=== PATIENT | female | born 1950 | race Caucasian/White ===

== ENCOUNTER 2016-11-22 00:01 | Outpatient (CLI) | payer MEDICARE, BC ==
[2014-06-04 09:58] VITALS: BMI 25.4
[~2016-11-22 00:01] MED LIST: ASPIRIN EC81 M1 PO; ASTELIN137 MCG NS; COLACE100 MG PO; DIFLUCAN100 MG PO; GARLIC1 CAP PO; IPRAT-ALBUT 0.5-3 ML UPD; NASONEX NASAL S17 GM NS; PRILOSEC20 MG PO; SINGULAIR10 MG PO; SYMBICORT 16010.2 GM INH; VENTOLIN HFA18 GM INH; ZYRTEC10 MG PO
== END 2016-11-22 23:59 | disposition home or self-care (01) ==
LOC: D.US 00:01
DX: N63 Unspecified lump in breast (principal)

== ENCOUNTER → 2018-06-27 09:08 | Outpatient (CLI) | payer MEDICARE, BC ==
[2014-06-04 09:58] VITALS: BMI 25.4
== END | disposition home or self-care (01) ==
LOC: D.CT 09:08
DX: R11.0 Nausea (principal); R10.13 Epigastric pain; R10.12 Left upper quadrant pain

== ENCOUNTER → 2018-08-26 08:57 | Outpatient (CLI) | payer MEDICARE, BC ==
[2014-06-04 09:58] VITALS: BMI 25.4
== END | disposition home or self-care (01) ==
LOC: D.RT 08:57
DX: J45.909 Unspecified asthma, uncomplicated (principal); J47.9 Bronchiectasis, uncomplicated

== ENCOUNTER → 2018-09-18 19:11 | Outpatient (CLI) | payer MEDICARE, BC ==
[2014-06-04 09:58] VITALS: BMI 25.4
== END | disposition home or self-care (01) ==
LOC: D.MAMMO 11:00
DX: Z12.31 Encounter for screening mammogram for malignant neoplasm of breast (principal)

== ENCOUNTER 2019-02-27 19:47 | Observation (INO) | payer MEDICARE, BC ==
[~2019-02-27] VITALS: Ht 172.7 cm; Wt 95.5 kg
--- NOTE | ~2019-02-27 | OP ---
PATIENT NAME: NOVA GRAHAM MEDICAL RECORD: [id number] :50 LOCATION:D.M2 D.0 ADMISSION DATE:02/27/19 SURGEON: BEKAH LOUIE MD DATE OF OPERATION: 02/28/2019 PROCEDURES: 1. Left heart catheterization. 2. Selective coronary angiography. 3. Left ventriculogram. 4. IFR. 5. Intravascular ultrasound. INDICATION: Angina and coronary artery disease. PROCEDURE IN DETAIL: After informed consent was obtained and after detailed explanation of risks, benefits as well as alternative therapies, the patient elected to proceed with angiogram and heart catheterization. The right femoral area was prepped and draped in normal sterile fashion. Right femoral artery was cannulated via modified Seldinger technique with placement of 6-Martiniquais sheath. All catheters exchanged through this sheath. FINDINGS: The left ventriculogram was performed in standard 30-degree LAMAR view, reveals good cardiac wall motion throughout all segments. Overall ejection fraction estimated 60%. SELECTIVE CORONARY ANGIOGRAPHY: 1. Left main showed no significant angiographic disease. 2. Left anterior descending has 79% stenosis confirmed by intravascular ultrasound; however, IFR was normal. 3. Left circumflex has mild irregularities, but no flow-limiting stenosis. 4. Right coronary has mild irregularities, but no flow-limiting stenosis. OVERALL IMPRESSION: Stenosis in the proximal LAD at 79%; however, normal IFR, optimized medical management. If she continues to have symptomatology despite optimal medical management proceed with coronary intervention. TRANSINT:[id number] Voice Confirmation ID: [id number] DOCUMENT ID: [id number] BEKAH LOUIE MD CC: [id number] DICTATION DATE: 02/28/19 1224 MANAGER ANIMATION: 02/28/19 1506 ADM IN [facility] [address] [place] [address]
--- NOTE | ~2019-02-27 | HEMODYNAMI ---
PATIENT:NVOA GRAHAM MEDICAL RECORD: [id number] : 50 LOCATION:[facility] D.2120 ADMISSION DATE: 02/27/19 Generatedon:02/28/201912:27 Patient name: NOVA GRAHAM Patient #: [id number] SSN: : 1950 Date of study: 02/28/2019 Page: Of Hemodynamic Procedure Report Patient Data Patient Demographics Procedure consent was obtained First Name: NOVA Gender: Female Last Name: GLADYS : 1950 Middle Initial: L Age: 68 year(s) Patient #: [id number] Race: Unknown Additional ID: [id number] Contact details [address]: [address] [place] [address] State: [place] City: [place] Zip code: [address] Admission Admission Data Admission Date: 02/27/2019 Admission Time: 22:24 Room #: D.2120 Height (in.): 68 BSA: 2.08 (m2) Height (cm.): 172.72 BMI: 31.84 (kg/m2) Weight (lbs.): 209.44 Weight (kg.): 95 Lab Results Lab Result Date: 02/28/2019 Lab Result Time: 0:00 Biochemistry Name Units Result Min Max BUN mg/dl 14 --(--*-)-- 7 18 Creatinine mg/dl 0.9 --(-*--)-- 0.6 1.3 CBC Name Units Result Min Max Hemoglobin g/dl 13 -*(----)-- 13.5 17.5 Procedure Procedure Types Cath Procedure Diagnostic Procedure LHC LHC w/Coronaries FFR/IVUS FFR Initial Intra-Coronary IVUS Initial Procedure Description Procedure Date Procedure Date: 02/28/2019 Procedure Start Time: 12:04 Procedure End Time: 12:27 Procedure Staff Name Function Bruce Monahan MD Performing Physician Edward Hollins RT Monitor Jayson Friedman RN Nurse Aston Terrell RT Scrub Procedure Data Cath Procedure Fluoroscopy Diagnostic fluoroscopy Total fluoroscopy Time: 3.5 time: 3.5 min min Diagnostic fluoroscopy Total fluoroscopy dose: 340 dose: 340 mGy mGy Contrast Material Contrast Material Type Amount (ml) Isovue 370 65 Entry Location Entry Primary Successful Side Size Upsize Upsize Entry Closure Succes sful Closure Location (Fr) 1 (Fr) 2 (Fr) Remarks Device Remarks Femoral Right 5 Fr 6 Fr Exoseal artery Short Estimated blood loss: 10 ml Diagnostic catheters Device Type Used For End Catheter Placement MULTIPACK Pigtail 5 Fr Procedure catheter MULTIPACK JL 4.0 5Fr Procedure catheter MULTIPACK 3DRC 5Fr Procedure catheter Procedure Complications No complications Procedure Medications Medication Administration Route Dosage Oxygen etCO2 Nasal cannula 2 l/min Lidocaine 2% added to field 20 Heparin Flush Bag added to field 2 bags (1000units/500ml NS) 0.9% NaCl I.V. 100 ml/hr Versed I.V. 1 mg Fentanyl I.V. 50 mcg Versed I.V. 1 mg Fentanyl I.V. 50 mcg Versed I.V. 1 mg Versed I.V. 1 mg Hemodynamics Rest BSA: 2.08 (m2) HGB: 13 (g/dl) O2 Consumption: Estimated: 185.62 (ml/min) O2 Cons umption indexed: Estimated:89.24 (ml/min/m) Heart Rate: 61 (bpm) Pressure Samples Time Site Value (mmHg) Purpose Heart Use Rate(bpm) 12:05 LV 121/43,70 Snapshot 65 12:10 AO 132/65(89) Snapshot 60 Snapshots Pre Cath Intra NCS Post Cath Vital Signs Time Heart Resp SPO2 etCO2 NIBP (mmHg) Rhythm Pain Sedation Rate (ipm) (%) (mmHg) Status Level (bpm) 11:31:45 61 13 100 15 165/79(125) NSR 0 (11) 10(A) , No pain 11:36:05 65 18 100 30.8 174/81(139) NSR 0 (11) 10(A) , No pain 11:40:29 60 18 100 30.8 166/78(110) NSR 0 (11) 10(A) , No pain 11:44:47 63 16 96 31.6 154/70(102) NSR 0 (11) 10(A) , No pain 11:49:07 63 12 94 30 131/64(99) NSR 0 (11) 10(A) , No pain 11:53:17 60 13 94 18 141/71(99) NSR 0 (11) 10(A) , No pain 11:57:31 62 13 96 14.3 125/68(91) NSR 0 (11) 10(A) , No pain 12:01:43 63 14 95 21.3 131/59(81) NSR 0 (11) 9(A) , No pain 12:05:55 62 14 93 0 127/64(91) NSR 0 (11) 9(A) , No pain 12:11:10 61 12 95 34.6 138/59(108) NSR 0 (11) 9(A) , No pain 12:15:28 62 13 93 33.8 113/56(82) NSR 0 (11) 9(A) , No pain 12:19:34 58 13 96 36.8 130/60(107) NSR 0 (11) 10(A) , No pain 12:23:48 59 11 96 39.8 137/60(104) NSR 0 (11) 10(A) , No pain Medications Time Medication Route Dose Verified Delivered Reason Notes Eff ectiveness by by 11:36:38 Oxygen etCO2 2 Bruce Buffie used for Nasal l/min Taniya Friedman RN procedure cannula 11:36:48 Lidocaine 2% added 20ml Bruce Bruce for local to vial Taniya Monahan MD anesthetic field 11:36:57 Heparin Flush added 2 Bruce Bruce used for Bag to bags Taniya Monahan MD procedure (1000units/500ml field NS) 11:37:06 0.9% NaCl I.V. 100 Bruce Buffie Per ml/hr Taniya Friedman RN physician 12:02:35 Versed I.V. 1 mg Bruce Buffie for Taniya Friedman RN sedation 12:02:40 Fentanyl I.V. 50 Bruce Buffie for mcg Taniya Friedman RN sedation 12:06:39 Versed I.V. 1 mg Bruce Buffie for Taniya Friedman RN sedation 12:06:42 Fentanyl I.V. 50 Bruce Buffie for mcg Taniya Friedman RN sedation 12:10:24 Versed I.V. 1 mg Bruce Buffie for Taniya Friedman RN sedation 12:14:25 Versed I.V. 1 mg Bruce Buffie for Tauth MD Friedman RN sedation Procedure Log Time Note 11:00:31 Aston Terrell RT(R) (CV) sent for patient. Start room use. 11:23:39 Time tracking: Regular hours (M-F 7:00 - 5:00) 11:23:43 Plan of Care:Hemodynamics will remain stable., Cardiac rhythm will remain stable., Comfort level will be maintained., Respiratory function will remain adequate., Patient/ family verbilizes understanding of procedure., Procedure tolerated without complication., Recovers from procedure without complications.. 11:23:49 Patient received from PCU to CCL 2 Alert and oriented. Tansferred to table in Supine position. 11:23:50 Warm blankets applied, and tammy hugger turned on for patient comfort. 11:23:51 Correct patient and procedure confirmed by team. 11:23:52 Signed procedure consent form obtained from patient. 11:23:52 ECG and BP/O2 sat monitors applied to patient. 11:30:33 Baseline sample Acquired. 11:30:33 Vital chart was started 11:30:37 Rhythm: sinus rhythm 11:30:38 Full Disclosure recording started 11:32:08 H&P Date Dictated: 02/28/2019 Within 30 days and on chart.. 11:32:09 Pre-procedure instructions explained to patient. 11:32:10 Pre-op teaching completed and patient verbalized understanding. 11:32:14 Family in patients room. 11:32:15 Patient NPO since Midnight. 11:32:17 Is the patient allergic to Iodine/contrast media? No. 11:32:19 Is patient on blood thinner?Yes 11:32:21 ACC The patient was administered the following blood thiners within the last 24 hours: ACCPlavix 11:32:25 Patient diabetic? No. 11:32:27 Previous problem with sedation/anesthesia? No ? 11:32:28 Snore? Yes 11:32:29 Sleep apnea? No 11:32:30 Deviated septum? No 11:32:31 Opens mouth fully? Yes 11:32:32 Sticks out tongue? Yes 11:32:34 Airway obstruction? Yes Asthma 11:32:42 Dentures? No ? 11:32:57 Pre procedure: right dorsailis pedis pulse 1+ Palpable, but thready & weak; easily obliterated 11:33:19 Pt opted for femoral access. 11:33:23 Patient pain scale 0/10 ?. 11:33:28 IV patent on arrival in left forearm with 0.9% NaCl at [facility]. 11:33:30 Lab results completed and on chart. 11:33:32 Right groin area was prepped with chlora-prep and draped in sterile fashion 11:33:34 Alarms reviewed by R. N. 11:33:34 Sharps counted by scrub and verified by R.N. 11:33:38 Use device set Femoral Dx 11:33:43 Tegaderm 4 x 4 (1626W) opened to sterile field. 11:33:44 ACIST Manifold (72036) opened to sterile field. 11:33:45 ACIST Hand Control (04913) opened to sterile field. 11:33:46 ACIST Syringe (09041) opened to sterile field. 11:33:46 Bag Decanter (2002S) opened to sterile field. 11:33:47 Medline Cath Pack ([id number]) opened to sterile field. 11:33:49 DIAGNOSTIC WIRE .035 260cm J wire (286918) opened to sterile field. 11:33:50 DIAGNOSTIC Multipack 5Fr catheter set (HY9710) opened to sterile field. 11:33:51 SHEATH 5FR Raleigh (IYM941) opened to sterile field. 11:34:58 Patient Weight : 209.44 lbs 11:35:03 Patient Height : 68 inches 11:35:28 Lab Result : Hemoglobin 13 g/dl 11:35:28 Lab Result : Creatinine 0.9 mg/dl 11:35:28 Lab Result : BUN 14 mg/dl 11:36:38 Oxygen 2 l/min etCO2 Nasal cannula was administered by Jayson Friedman RN; used for procedure; 11:36:48 Lidocaine 2% 20ml vial added to field was administered by Bruce Monahan MD; for local anesthetic; 11:36:57 Heparin Flush Bag (1000units/500ml NS) 2 bags added to field was administered by Bruce Monahan MD; used for procedure; 11:37:06 0.9% NaCl 100 ml/hr I.V. was administered by Jayson Friedman RN; Per physician; 11:43:01 Zero performed for pressure channel P1 12:00:14 --------ALL STOP TIME OUT------ 12:00:14 Final Timeout: patient, procedure, and site verified with staff and physician. All members of the team are in agreement. 12:00:17 Right groin site verified by team. 12:00:52 Maximum allowable Isovue 370 dose 300ml. Physician notified. (300ml for normal creatinines. For patients with creatinine of 1.7 or higher multiply weight(kg) x 5 divided by creatinine.) 12:00:57 Fire Safety Assessment: A--An alcohol-based skin anteseptic being used preoperatively., C--Open oxygen or nitrous oxide is being used., D--An ESU, laser, or fiber-optic light is being used. 12:01:07 Physical assessment completed. ASA score P 2 - A patient with mild systemic disease as per Bruce Monahan MD. 12:01:10 Sedation plan: IV Moderate Sedation Medication:Versed, Fentanyl 12:02:35 Versed 1 mg I.V. was administered by Jayson Friedman RN; for sedation; 12:02:40 Fentanyl 50 mcg I.V. was administered by Jayson Friedman RN; for sedation; 12:03:54 Procedure started. 12:04:07 Local anesthetic to right femoral artery with Lidocaine 2% by Bruce Monahan MD.INITIAL ACCESS ONLY 12:04:56 A 5 Fr sheath was inserted into the Right Femoral artery 12:05:31 A MULTIPACK Pigtail 5 Fr catheter was advanced over the wire and used for Procedure. 12:05:51 LV angiography performed. 12:05:53 LV gram done using LAMAR 12:06:06 EF : 65 % 12:06:11 LV hemodynamics recorded. 12:06:15 Injector settings: Ml/sec: 10, Volume: 20, 12:06:18 Catheter removed. 12:06:23 A MULTIPACK JL 4.0 5Fr catheter was advanced over the wire and used for Procedure. 12:06:38 LCA angiography performed. 12:06:39 Versed 1 mg I.V. was administered by Jayson Friedman RN; for sedation; 12:06:42 Fentanyl 50 mcg I.V. was administered by Jayson Friedman RN; for sedation; 12:07:29 Catheter removed. 12:07:44 A MULTIPACK 3DRC 5Fr catheter was advanced over the wire and used for Procedure. 12:07:48 RCA angiography performed. 12:07:50 Catheter removed. 12:07:53 Use device set TAUTH PCI 12:08:00 GUIDE 6FR XBLAD 3.5 catheter ([id number]) opened to sterile field. 12:08:03 SHEATH 6FR [place] (QLT681) opened to sterile field. 12:08:06 INFLATOR Merit BasixCompak (SO9908) opened to sterile field. 12:08:07 [place]mer Verrata Plus pressure wire (14006Z) opened to sterile field. 12:09:07 Sheath upsized to a 6 Fr Short. 12:09:17 6 Fr XBLAD 3.5 guide catheter was inserted over the wire 12:10:19 FFR/IFR wire advanced. 12:10:24 Versed 1 mg I.V. was administered by Jayson Friedman RN; for sedation; 12:11:01 Wire advanced across lesion. 12:12:41 LAD lesion measured at 0.95 with IFR 12:13:08 Second measurement of LAD lesion measured at 0.95 with IFR 12:13:30 [place]mer Match-E-[employer] Eagleye IVUS Catheter (91419J) opened to sterile field. 12:14:22 IVUS catheter advanced over wire. 12:14:25 Versed 1 mg I.V. was administered by Jayson Friedman RN; for sedation; 12:15:05 IVUS pass to LAD lesion performed. 12:15:51 IVUS catheter removed over wire. 12:18:58 IVUS measured at 79% in the Proximal LAD. 12:19:53 EXOSEAL 6Fr (EX600) opened to sterile field. 12:20:07 Wire removed. 12:20:07 Guide catheter removed. 12:20:15 Sheath removed intact; hemostasis achieved with Exoseal to the Right Femoral artery. 12:20:17 Procedure ended.(Physican Out) 12:23:33 Fluoroscopy time 03.50 minutes. 12:23:37 Flurop Dose total: 340 12:23:37 Fluoroscopy dose: 340 mGy 12:23:41 Contrast amount:Isovue 370 65ml. 12:23:52 Sharps counted by scrub and verified by R.N. 12:23:59 Insertion/operative site no bleeding no hematoma. 12:24:02 Post-op/insertion site Right Femoral artery dressed using a 4 x 4 and Tegaderm. 12:24:03 Post Procedure Pulses reassessed and unchanged 12:24:06 Post-procedure physical assessment completed. ASA score P 2 - A patient with mild systemic disease as per Bruce Monahan MD. 12:24:08 Post procedure rhythm: unchanged. 12:24:11 Estimated blood loss: 10 ml 12:24:12 Post procedure instruction explained to patient.Patient verbalizes understanding. 12:24:13 Patient needs reinforcement of post procedure teaching. 12:24:22 Procedure type changed to Cath procedure, Diagnostic procedure, LHC, LHC w/Coronaries, FFR/IVUS, FFR Initial, Intra-Coronary IVUS Initial 12:24:43 Procedure and supply charges have been captured, reviewed, submitted and are correct. 12:24:46 Procedure Complication : No complications 12:27:03 Vital chart was stopped 12:27:03 See physician's report for complete and final results. 12:27:06 Report given to PCU. 12:27:09 Patient transfered to PCU with Bed. 12:27:11 Procedure ended. 12:27:11 Full Disclosure recording stopped 12:27:17 End room use (Document Last) Device Usage Item Name Manufacture Quantity Catalog Hospital Part Current Minima l Lot# / Number Charge Number Stock Stock Serial# Code Tegaderm 4 3M 1 1626W [id number] [id number] 5 x 4 (1626W) ACIST Acist 1 66710 609557 078611 751380 5 Manifold Medical (70861) Systems Inc ACIST Hand Acist 1 39012 487662 661455 372408 5 Control Medical (72432) Systems Inc ACIST Acist 1 30778 942468 980590 394047 20 Syringe Medical (94934) Systems Inc Bag Microtek 1 2001S 696920 94339 316416 5 Decanter Medical Inc. () Medline Medline 1 [id number] 781501 66824 132674 5 Cath Pack ([id number]) DIAGNOSTIC St Bishnu 1 299550 822637 731393 599438 30 WIRE .035 260cm J wire (406804) DIAGNOSTIC Cardinal 1 FY2877 145162 23071 168066 30 Attend.com Health 5Fr catheter set (HR4130) SHEATH 5FR Terumo 1 UFW871 849216 559038 932503 5 [place] (OTD497) MULTIPACK Cardinal 1 046712 5 Pigtail 5 Health Fr catheter MULTIPACK Cardinal 1 714284 5 JL 4.0 5Fr Health catheter MULTIPACK Cardinal 1 182660 5 3DRC 5Fr Health catheter GUIDE 6FR Cardinal 1 82275062 105968 110314 809301 10 XBLAD 3.5 Health catheter (34023060) SHEATH 6FR Terumo 1 QZK308 271894 072120 034478 40 [place] (PAL102) INFLATOR Merit 1 BS7988 589541 550752 424374 15 [facility] Medical BasixCompak (RB9915) Bessemer Bessemer 1 34152H 818869 440860821 899875 5 Verrata Plus pressure wire (56735G) Bessemer Bessemer 1 96061I 876963 523189 820821 8 Match[employer] Eagleye IVUS Catheter (88631A) EXOSEAL 6Fr Cardinal 1 EX600 855185 885497 812051 10 (EX600) Health Signature Audit [place] Stage Time Signature Unsigned Intra-Procedure 02/28/2019 Edward Hollins 12:27:37 PM RT(R) Signatures Monitor : Edward Hollins RT Signature : Date : Time : [id number] [place] [address]
[2019-02-27 20:43] LABS: BASOPHILS 0.8 % (0-2); HEMATOCRIT 40.9 % (36.0-48.0); HEMOGLOBIN 14.3 g/dL (12-16); IMMATURE GRANULOCYTES 0.2 % (0-5); MCH 31.8 pg (26.0-34.0); MCV 91.1 fL (80.0-100.0); MEAN PLATELET VOLUME 8.8 fL (7.4-10.4); MONOCYTES 7.8 % (2-11); NEUTROPHILS 44.2 % (40-80); PLATELET COUNT 455 10x3/uL (130-400); RBC 4.49 10x6/uL (4.00-5.40); RDW 15.6 % (11.5-14.5); WBC 9.7 10x3/uL (4.8-10.8)
[2019-02-27 21:05] LABS: ALBUMIN 4.1 g/dL (3.4-5.0); ALKALINE PHOSPHATASE 92 U/L (46-116); ALT (SGPT) 24 U/L (10-68); BILIRUBIN - TOTAL 0.76 mg/dL (0.2-1.3); CALC OSMOLALITY 277 mosm/kg (275-300); CALCIUM 9.2 mg/dL (8.5-10.1); CARBON DIOXIDE 29.4 mmol/L (21.0-32.0); CHLORIDE - SERUM 102 mmol/L (98-107); CREATININE - SERUM 0.9 mg/dL (0.6-1.3); GLUCOSE 91 mg/dL (74-106); POTASSIUM - SERUM 4.1 mmol/L (3.5-5.1); PROTEIN - SERUM 8.3 g/dL (6.4-8.2); SODIUM 139 mmol/L (136-145); UREA NITROGEN 13 mg/dL (7-18); eGFR NON AFRICAN AMERICAN 66 mL/min (90-120)
[2019-02-27 21:08] LABS: CKMB 1.5 U/L (0.0-3.6); CREATINE KINASE 115 UL (21-215); TROPONIN-I < 0.017 ng/mL (0.000-0.060)
--- NOTE | 2019-02-27 22:04 | NUR ---
PT AMBULATED TO RESTROOM INDEPENDENTLY.
[2019-02-27 22:12] LABS: APPEARANCE CLEAR (CLEAR); BILIRUBIN NEGATIVE (NEGATIVE); COLOR STRAW (YELLOW); GLUCOSE NEGATIVE (NEGATIVE); KETONE NEGATIVE (NEGATIVE); NITRITE NEGATIVE (NEGATIVE); PROTEIN NEGATIVE (NEGATIVE); SPECIFIC GRAVITY 1.005 (1.005-1.020); UROBILINOGEN NORMAL (NORMAL)
--- NOTE | 2019-02-27 23:05 | NUR ---
PT'S FAMILY REQUEST THEIR CONTACT NUMBERS BE LISTED IN PT'S CHART. PT'S , ERI [phone] PT'S DAUGHTER, CARLIN [phone]
[2019-02-27] MEDS ORDERED: VITAMIN D5000 UNIT PO (23:58)
[2019-02-27] MEDS ORDERED: CARAFATE1 G PO (23:59)
[2019-02-27] MEDS ORDERED: PEPCID40 MG PO (23:59)
[2019-02-28] MEDS ORDERED: HCTZ25 MG PO
[2019-02-28] MEDS ORDERED: MIRAPEX0.5 MG PO (00:01)
[2019-02-28] MEDS ORDERED: NITROSTAT0.4 MG SL (00:01)
[2019-02-28 01:36] VITALS: BP 133/64; BMI 32.0
--- NOTE | 2019-02-28 07:46 | NUR ---
ASSESSMENT DONE. DENIES NEEDS.
[2019-02-28 08:01] LABS: BASOPHILS 0.9 % (0-2); EOSINOPHILS 3.7 % (0-7); IMMATURE GRANULOCYTES 0.1 % (0-5); LYMPHOCYTES 38.7 % (15-50); MCH 31.3 pg (26.0-34.0); MCHC 34.2 g/dL (31.0-37.0); MCV 91.3 fL (80.0-100.0); MEAN PLATELET VOLUME 9.2 fL (7.4-10.4); MONOCYTES 9.3 % (2-11); NEUTROPHILS 47.3 % (40-80); PLATELET COUNT 430 10x3/uL (130-400); RBC 4.16 10x6/uL (4.00-5.40); RDW 15.6 % (11.5-14.5); WBC 8.1 10x3/uL (4.8-10.8)
[2019-02-28 08:13] VITALS: BP 128/60
[2019-02-28 08:27] LABS: ALBUMIN 3.4 g/dL (3.4-5.0); ALKALINE PHOSPHATASE 79 U/L (46-116); ALT (SGPT) 21 U/L (10-68); BILIRUBIN - TOTAL 1.04 mg/dL (0.2-1.3); CALC OSMOLALITY 278 mosm/kg (275-300); CALCIUM 8.8 mg/dL (8.5-10.1); CARBON DIOXIDE 29.5 mmol/L (21.0-32.0); CHLORIDE - SERUM 103 mmol/L (98-107); CKMB 1.1 U/L (0.0-3.6); CREATINE KINASE 80 UL (21-215); CREATININE - SERUM 0.9 mg/dL (0.6-1.3); GLUCOSE 87 mg/dL (74-106); POTASSIUM - SERUM 3.6 mmol/L (3.5-5.1); PROTEIN - SERUM 7.1 g/dL (6.4-8.2); SODIUM 140 mmol/L (136-145); UREA NITROGEN 14 mg/dL (7-18); eGFR NON AFRICAN AMERICAN 66 mL/min (90-120)
[2019-02-28 08:30] LABS: TROPONIN-I < 0.017 ng/mL (0.000-0.060)
[2019-02-28 09:26] VITALS: Ht 172.7 cm; Wt 95.5 kg
[2019-02-28 09:53] LABS: CHOL - HDL RATIO 4.2 ratio (2.3-4.1); LDL-HDL RATIO 2.4 ratio (1.5-3.5)
--- NOTE | 2019-02-28 09:58 | NUR ---
I have reviewed this patient and I concur with the Shift Assessment completed by the Licensed Practical Nurse today this shift.
[2019-02-28 11:45] VITALS: BP 149/68
[2019-02-28] MEDS ORDERED: ASPIRIN325 MG PO (14:16)
[2019-02-28] MEDS ORDERED: NORVASC5 MG PO (14:22)
[2019-02-28] MEDS ORDERED: ISOSORBIDE MONO30 M1 PO (14:23)
--- NOTE | 2019-02-28 16:20 | NUR ---
DC AND RX GIVEN TO PT
--- NOTE | 2019-02-28 16:32 | NUR ---
DC HOME PER PERSONAL CAR
--- NOTE | 2019-03-03 08:26 | MORECARE ---
CASE MANAGEMENT DISCHARGE SUMMARY PATIENT: NOVA GRAHAM UNIT: [id number] ADM DATE: 02/27/19 AGE: 68 : 50 SEX: F ROOM/BED: D.5530 AUTHOR: KRUPA HATCH PHYSICIAN: REFERRING PHYSICIAN: MP WEINER MD DATE OF SERVICE: 03/03/19 Discharge Plan Patient Name: NOVA GRAHAM Facility: [facility]:[place] : 1950 Planned Disposition: Home Anticipated Discharge Date: 02/28/19 Discharge Date: 02/28/2019 Expected LOS: 1 Initial Reviewer: [email or web address] Initial Review Date: 03/03/2019 Generated: 03/03/19 9:25 am Patient Name: NOVA GRAHAM Page 72766 at 0826 All edits/amendments must be made on the electronic document DICTATION DATE: 03/03/19824 RESEARCH INTERN: MAKI 03/03/19824 RPT#: [id number] DC DATE:02/28/19 STATUS: DIS IN [facility] [address] [place] [address] END OF REPORT
== END 2019-02-28 16:32 | disposition home or self-care (01) ==
LOC: D.ER 19:47 → D.M2 22:24 → OBSVTIME 22:24 → D.M2 22:24
PROVIDERS: Family Medicine; Internal Medicine Interventional Cardiology; ADMIT Family Medicine; ATTEND Family Medicine
DX: I25.110 Atherosclerotic heart disease of native coronary artery with unstable angina pectoris (principal); I10 Essential (primary) hypertension; K21.9 Gastro-esophageal reflux disease without esophagitis; E78.5 Hyperlipidemia, unspecified; E04.1 Nontoxic single thyroid nodule

== ENCOUNTER 2019-09-04 12:58 | Emergency (ER) | payer MEDICARE, BC ==
[~2019-09-04] VITALS: Ht 172.7 cm; Wt 70.0 kg
[~2019-09-04 12:58] MED LIST changes: +ASPIRIN325 MG PO; +CARAFATE1 G PO; +HCTZ25 MG PO; +ISOSORBIDE MONO30 M1 PO; +MIRAPEX0.5 MG PO; +NITROSTAT0.4 MG SL; +NORVASC5 MG PO; +PEPCID40 MG PO; +VITAMIN D5000 UNIT PO
[2019-09-04 13:01] VITALS: Ht 172.7 cm; Wt 70.0 kg
[2019-09-04 13:25] LABS: BASOPHILS 0.5 % (0-2); HEMATOCRIT 40.7 % (36.0-48.0); HEMOGLOBIN 13.9 g/dL (12-16); IMMATURE GRANULOCYTES 0.5 % (0-5); LYMPHOCYTES 20.6 % (15-50); MCH 31.7 pg (26.0-34.0); MCHC 34.2 g/dL (31.0-37.0); MCV 92.7 fL (80.0-100.0); MEAN PLATELET VOLUME 8.7 fL (7.4-10.4); MONOCYTES 15.6 % (2-11); NEUTROPHILS 60.8 % (40-80); RBC 4.39 10x6/uL (4.00-5.40); RDW 15.6 % (11.5-14.5); WBC 10.1 10x3/uL (4.8-10.8)
[2019-09-04 13:31] LABS: PLATELET COUNT 328 10x3/uL (130-400)
[2019-09-04 13:33] LABS: CALC OSMOLALITY 252 mosm/kg (275-300); CALCIUM 8.7 mg/dL (8.5-10.1); CARBON DIOXIDE 23.8 mmol/L (21.0-32.0); CHLORIDE - SERUM 91 mmol/L (98-107); CREATININE - SERUM 1.2 mg/dL (0.6-1.3); GLUCOSE 94 mg/dL (74-106); SODIUM 126 mmol/L (136-145); UREA NITROGEN 13 mg/dL (7-18); eGFR NON AFRICAN AMERICAN 47 mL/min (90-120)
[2019-09-04 13:40] LABS: INR 1.05 (0.85-1.17); PROTIME 13.2 SECONDS (11.6-15.0)
[2019-09-04 13:50] LABS: ALBUMIN 3.5 g/dL (3.4-5.0); ALKALINE PHOSPHATASE 82 U/L (46-116); ALT (SGPT) 25 U/L (10-68); BILIRUBIN - TOTAL 1.29 mg/dL (0.2-1.3); CKMB 1.4 U/L (0.0-3.6); CREATINE KINASE 256 UL (21-215); MAGNESIUM - SERUM 1.9 mg/dL (1.8-2.4); PROTEIN - SERUM 7.3 g/dL (6.4-8.2); THYROID STIMULATING HORMONE 1.46 uIU/mL (0.36-3.74); TROPONIN-I < 0.017 ng/mL (0.000-0.060)
[2019-09-04] MEDS ORDERED: HYDROCODON-ACE1 EAC2 PO (14:10)
[2019-09-04 14:41] LABS: APPEARANCE CLEAR (CLEAR); BILIRUBIN NEGATIVE (NEGATIVE); COLOR YELLOW (YELLOW); GLUCOSE NEGATIVE (NEGATIVE); KETONE SMALL mg/dL (NEGATIVE); NITRITE NEGATIVE (NEGATIVE); PROTEIN NEGATIVE (NEGATIVE); UROBILINOGEN NORMAL (NORMAL)
[2019-09-04 14:42] LABS: UDS - AMPHET NEGATIVE QUAL (NEGATIVE); UDS - BARB NEGATIVE QUAL (NEGATIVE); UDS - BENZO NEGATIVE QUAL (NEGATIVE); UDS - COCAINE NEGATIVE QUAL (NEGATIVE); UDS - OPIATE POSITIVE QUAL (NEGATIVE); UDS - PCP NEGATIVE QUAL (NEGATIVE); UDS - THC NEGATIVE QUAL (NEGATIVE)
[2019-09-04 14:45] VITALS: BP 124/76
== END 2019-09-04 14:53 | disposition home or self-care (01) ==
LOC: D.ER 12:58
PROVIDERS: Emergency Medicine
DX: R55 Syncope and collapse (principal); E87.1 Hypo-osmolality and hyponatremia; R07.89 Other chest pain; I10 Essential (primary) hypertension; J45.909 Unspecified asthma, uncomplicated

== ENCOUNTER 2019-09-06 12:51 | Emergency (ER) | payer MEDICARE, BC ==
[~2019-09-06] VITALS: Ht 172.7 cm; Wt 70.0 kg
[2019-09-06 12:51] VITALS: Ht 172.7 cm; Wt 70.0 kg
[~2019-09-06 12:51] MED LIST changes: +HYDROCODON-ACE1 EAC2 PO
[2019-09-06 13:37] LABS: BASOPHILS 0.2 % (0-2); EOSINOPHILS 0.8 % (0-7); HEMATOCRIT 42.2 % (36.0-48.0); HEMOGLOBIN 14.4 g/dL (12-16); IMMATURE GRANULOCYTES 0.4 % (0-5); LYMPHOCYTES 5.1 % (15-50); MCH 31.4 pg (26.0-34.0); MCHC 34.1 g/dL (31.0-37.0); MCV 92.1 fL (80.0-100.0); MEAN PLATELET VOLUME 8.5 fL (7.4-10.4); MONOCYTES 9.3 % (2-11); NEUTROPHILS 84.2 % (40-80); PLATELET COUNT 344 10x3/uL (130-400); RBC 4.58 10x6/uL (4.00-5.40); RDW 15.5 % (11.5-14.5); WBC 10.3 10x3/uL (4.8-10.8)
[2019-09-06 13:45] LABS: CALC OSMOLALITY 267 mosm/kg (275-300); CALCIUM 8.8 mg/dL (8.5-10.1); CARBON DIOXIDE 26.6 mmol/L (21.0-32.0); CHLORIDE - SERUM 98 mmol/L (98-107); CREATININE - SERUM 1.1 mg/dL (0.6-1.3); GLUCOSE 102 mg/dL (74-106); INR 1.05 (0.85-1.17); POTASSIUM - SERUM 4.2 mmol/L (3.5-5.1); PROTIME 13.2 SECONDS (11.6-15.0); SODIUM 133 mmol/L (136-145); UREA NITROGEN 17 mg/dL (7-18); eGFR NON AFRICAN AMERICAN 52 mL/min (90-120)
[2019-09-06 14:00] LABS: ALBUMIN 3.4 g/dL (3.4-5.0); ALKALINE PHOSPHATASE 78 U/L (46-116); ALT (SGPT) 28 U/L (10-68); BILIRUBIN - TOTAL 0.69 mg/dL (0.2-1.3); CKMB 0.7 U/L (0.0-3.6); CREATINE KINASE 83 UL (21-215); MAGNESIUM - SERUM 2.1 mg/dL (1.8-2.4); PROTEIN - SERUM 7.1 g/dL (6.4-8.2)
[2019-09-06 14:01] LABS: TROPONIN-I < 0.017 ng/mL (0.000-0.060)
[2019-09-06 14:41] VITALS: BP 140/68
== END 2019-09-06 14:42 | disposition home or self-care (01) ==
LOC: D.ER 12:51
PROVIDERS: Family Medicine
DX: R55 Syncope and collapse (principal); I10 Essential (primary) hypertension; J45.909 Unspecified asthma, uncomplicated

== ENCOUNTER 2021-01-20 19:00 | Outpatient (CLI) | payer MEDICARE, BC ==
[2019-09-06 12:51] VITALS: BMI 23.4
== END 2021-01-20 23:59 | disposition home or self-care (01) ==
LOC: D.MAMMO 19:00
PROVIDERS: ATTEND Nurse Practitioner
DX: Z12.31 Encounter for screening mammogram for malignant neoplasm of breast (principal)